=== PATIENT | male | born 1970 | race Caucasian/White ===

== ENCOUNTER 2020-12-14 19:45 | Emergency (ER) | payer OTHER ==
[~2020-12-14] VITALS: Ht 177.8 cm; Wt 131.7 kg
--- NOTE | 2020-12-14 19:52 | ED EENT ---
History of Present Illness General Stated Complaint: WC, FOREIGN BODY LT EYE History of Present Illness Date Seen by Provider: Dec 14, 2020 Time Seen by Provider: 20:00 Initial Comments 50-year-old male presents with left eye irritation and foreign body sensation after working today getting dust in his eyes. Denies any trauma to his eye or known projectile. He was wearing safety glasses while working outdoors and was very sweaty with a lot of dirt and knew that he likely got dirt in his eyes. He went home and rinsed his eyes rather aggressively, took a nap and woke up and his eye was feeling worse. Allergies and Home Medications Allergies Coded Allergies: No Known Drug Allergies (Unverified , 12/14/20) Patient Home Medication List Home Medication List Reviewed: Yes Review of Systems Review of Systems Constitutional: no symptoms reported; No fever, No malaise, No weakness Eyes: See HPI; Denies Blindness, Denies Blurred Vision, Denies Drainage; Foreign Body Sensation, Inflammation; Denies Pain, Denies Photophobia, Denies Shadows, Denies Tunnel Vision, Denies Vision Changes Ears: No Symptoms Reported Neurological: No Symptoms Reported Past Wljeuez-Pjomii-Ntcyyr Hx Past Med/Social Hx: Reviewed Nursing Past Med/Soc Hx Physical Exam Vital Signs Vital Signs - First Documented 12/14/20 19:55 Temp 36.4 Pulse 92 Resp 20 B/P (MAP) 146/75 (98) O2 Delivery Room Air Height, Weight, BMI Height: '" Weight: lbs. oz. kg; BMI Method: General Appearance: WD/WN, no apparent distress Eyes: left eye conjunctival inflammation, left eye lid inflammation, left eye other (moderate inflammation and injection of conjunctiva without FB identified. Normal cornea without abrasion of FB); bilateral eye PERRL, bilateral eye EOMI Neurologic/Psychiatric: alert, normal mood/affect, oriented x 3 Procedures/Interventions Eye : Location: left eye Eye Irrigated w/ Saline (ccs): 30 Anesthesia (gtts): Tetracaine Progress/Procedure Conclusion no FB seen on exam and no corneal abrasion seen. Irrigated well. Progress/Results/Core Measures Results/Orders My Orders Orders - RODANIELITOSTOCTAVOI LIAO DO Tetracaine 0.5% Ophth Marlee Sdv (Tetracai (12/14/20 20:00) Trimethoprim/Polymyx Ophth Marlee (Polytrim (12/14/20 20:00) Fluorescein Strips ([id number]-P-[id number]) (12/14/20 20:00) Balanced Salt Irrigation Soln (Bss Irrig (12/14/20 20:00) Medications Given in ED Current Medications Medications Dose Ordered Sig/Dinah Route Start Time Stop Time Status Last Admin Dose Admin Balanced Salt Solution 15 ml ONCE ONCE IR 12/14/20 20:00 12/14/20 20:01 DC 12/14/20 20:10 15 ML Fluorescein Sodium 1 mg ONCE ONCE OU 12/14/20 20:00 12/14/20 20:01 DC 12/14/20 20:11 1 MG Tetracaine HCl 1 OR 2 DROPS INTO AFFEC... ONCE ONCE OP 12/14/20 20:00 12/14/20 20:01 DC 12/14/20 20:10 1 ML Vital Signs/I&O 12/14/20 19:55 Temp 36.4 Pulse 92 Resp 20 B/P (MAP) 146/75 (98) O2 Delivery Room Air Departure Impression Primary Impression: Conjunctivitis Qualified Codes: H10.532 - Contact blepharoconjunctivitis, left eye Disposition: HOME, SELF-CARE Condition: Improved Departure-Patient Inst. Decision time for Depature: 20:18 Patient Instructions: How to Use Eye Drops, Blepharitis Add. Discharge Instructions: Follow up with a local hydraulic lift driver for re-evaluation of your eye TOMORROW, 15 December OCTAVIO KELLOGG DO Dec 14, 2020 19:52
[2020-12-14 19:55] VITALS: BP 146/75
[2020-12-14] MEDS ORDERED: TETRACAINE 0.5% OPHTH SOLN 4 ML BTL (SINGLE DOSE ONLY) OP ONE (20:00)
[2020-12-14] MEDS ORDERED: POLY/TRIMETH (POLYTRIM) OPHTH 10 ML BTL OU ONE (20:00)
[2020-12-14] MEDS ORDERED: FLUORESCEIN (FLUOR-I-STRIPS) 1 MG STRP OU ONE (20:00)
[2020-12-14] MEDS ORDERED: BSS 15 ML IR ONE (20:00)
[2020-12-14] MEDS ORDERED: ERYTHROMYCIN OPHTH OINT 1 GM (SINGLE USE) TUBE OP STA (20:33)
[2020-12-14] MEDS ORDERED: ERYTHROMYCIN OPHTH OINT 1 GM (SINGLE USE) TUBE ONE (20:43)
[2020-12-15] MEDS ORDERED: POLY/TRIMETH (POLYTRIM) OPHTH 10 ML BTL OU SCH
== END 2020-12-14 20:47 | disposition home or self-care (01) ==
LOC: ER FS 19:48
DX: H10.9 Unspecified conjunctivitis (principal)
CPT/HCPCS: 99282